=== PATIENT | male | born 1945 | race Caucasian/White ===

== ENCOUNTER → 2018-02-12 | Outpatient (CLI) | payer MEDICARE ==
[~2018-02-12] MED LIST: AMLO10 PO; ATOR40TA PO; ATOR80; AZIT250 PO; Aspir 8181 MG PO; BLOOD PRESSURE PILL; CHLO25B PO; Cipro500 MG PO; Flagyl250 MG PO; LEVFLO500 PO; LISI5; Lomotil Tablet1 EACH PO; METO25 PO; METO50; Norco 5-325 Ta1 EACH PO; POTCHL10ER PO; POTCHL20ER PO; VALSARTAN40 MG; Zofran Odt4 MG SL
== END | disposition home or self-care (01) ==
LOC: LAB SHORT 08:15 → PLD 08:15
DX: L57.0 Actinic keratosis (principal)
CPT/HCPCS: 88305

== ENCOUNTER 2020-04-04 05:15 | Emergency (ER) | payer MEDICARE ==
[~2020-04-04] VITALS: Ht 172.7 cm; Wt 95.2 kg
[2020-04-04 05:50] LABS: BASOPHILS ABSOLUTE AUTO 0.06 K/mm3 (0.00-0.23); BASOPHILS PERCENT AUTO 0 % (0-2); EOSINOPHILS ABSOLUTE AUTO 0.25 K/mm3 (0.00-0.68); EOSINOPHILS PERCENT AUTO 2 % (0-6); Hemoglobin 15.3 g/dL (13.5-17.5); IMMATURE GRAN ABSOLUTE AUTO 0.07 K/mm3 (0.00-0.10); IMMATURE GRAN PERCENT AUTO 1 % (0-1); LYMPHOCYTES ABSOLUTE AUTO 1.14 K/mm3 (0.84-5.20); LYMPHOCYTES PERCENT AUTO 8 % (21-46); MONOCYTES ABSOLUTE AUTO 0.95 K/mm3 (0.16-1.47); MONOCYTES PERCENT AUTO 7 % (4-13); Mean Corpuscular HGB 29.2 pg (26.0-34.0); Mean Corpuscular HGB Conc 33.3 g/dL (31.5-36.5); Mean Corpuscular Volume 88 fL (80-100); NEUTROPHILS ABSOLUTE AUTO 11.69 K/mm3 (1.96-9.15); NEUTROPHILS PERCENT AUTO 83 % (41-73); Platelet Count 215 K/mm3 (150-400); RDW Coefficient Variation 13.2 % (11.7-14.2); RDW Standard Deviation 42.7 fL (35.1-46.3); Red Blood Cell Count 5.24 M/mm3 (4.30-5.90); White Blood Cell Count 14.16 K/mm3 (4.00-11.30)
[2020-04-04 06:07] LABS: Albumin, Blood 3.6 g/dL (3.4-5.0); Albumin/Globulin Ratio 1.2 (0.8-1.8); Bilirubin, Total 0.7 mg/dL (0.1-1.0); Calcium, Blood 8.8 mg/dL (8.5-10.1); Creatinine, Blood 1.36 mg/dL (0.60-1.20); Globulin, Blood 3.1 g/dL (2.2-4.0); Potassium, Blood 3.3 mmol/L (3.5-5.5); Total Protein, Blood 6.7 g/dL (6.4-8.2)
[2020-04-04] MEDS ORDERED: HYDR1TAB94 PO (07:00)
[2020-04-04 07:51] LABS: Source, Urine Clean Catch
[2020-04-04 07:58] LABS: Appearance, Urine Cloudy (Clear); Bilirubin, Urine Neg (Neg); Blood, Urine 5+ (Neg); Color, Urine Brown (P-Yellow); Glucose Qualitative, Urine Neg (Neg); Ketones, Urine 1+ (Neg); Leukocyte Esterase, Urine 1+ (Neg); Nitrite, Urine Neg (Neg); Protein, Urine 2+ (Neg); Specific Gravity, Urine 1.015 (1.003-1.022); Urobilinogen, Urine NORM (Normal); pH, Urine 6.5 (5.0-8.0)
[2020-04-04 08:08] LABS: Red Blood Cells, Urine TNTC /hpf (0-2)
[2020-04-04 08:09] LABS: Bacteria Mod /hpf; Squamous Epithelial Cells Rare /hpf (Few)
[2020-04-07] MEDS ORDERED: METOPROLOL TART25 MG PO (22:57)
[2020-04-07] MEDS ORDERED: LOSA50 PO (22:58)
== END 2020-04-04 08:20 | disposition home or self-care (01) ==
LOC: ER 05:15
PROVIDERS: Emergency Medicine
DX: N13.2 Hydronephrosis with renal and ureteral calculous obstruction (principal); Z79.82 Long term (current) use of aspirin; Z79.899 Other long term (current) drug therapy; Z79.2 Long term (current) use of antibiotics; I10 Essential (primary) hypertension; I25.2 Old myocardial infarction; E78.5 Hyperlipidemia, unspecified; Z87.891 Personal history of nicotine dependence
CPT/HCPCS: 36415; 74176; 80053; 81001; 83690; 85025; 87086; 93005; 93010; 99284-25

== ENCOUNTER 2023-01-22 12:24 | Day surgery (SDC) | payer MEDICARE ==
[~2023-01-22] VITALS: Ht 172.7 cm; Wt 78.0 kg
[~2023-01-22 12:24] MED LIST changes: +HYDR1TAB94 PO; +LOSA50 PO; +METOPROLOL TART25 MG PO
[2023-01-22] MEDS ORDERED: OLME20 PO (12:55)
--- NOTE | 2023-01-22 13:05 | NUR ---
01/22/23 1305 Tata Dao CALL LIGHT WITHIN REACH. TETRACAINE IN AT 1300 IN THE LEFT EYE AND PLEDGETT IN AT 1303
[2023-01-22 14:03] VITALS: BP 161/68
--- NOTE | 2023-01-22 14:04 | NUR ---
01/22/23 1404 Keyshawn De Paz IV REMOVED. SITE WNL. PT INSTRUCTED TO MONITOR B/P AT HOME AND FOLLOW UP WITH PCP.
== END 2023-01-22 14:18 | disposition home or self-care (01) ==
LOC: ORSCSDS 12:24
PROVIDERS: Ophthalmology
PROC: 08DK3ZZ Extraction of Left Lens, Percutaneous Approach (ICD-10-PCS; principal; 2023-01-22 13:30)
DX: H25.12 Age-related nuclear cataract, left eye (principal); I25.2 Old myocardial infarction; I10 Essential (primary) hypertension; Z79.899 Other long term (current) drug therapy
CPT/HCPCS: J2250; J3010; J3301; J7040; V2632

== ENCOUNTER 2023-01-29 12:08 | Day surgery (SDC) | payer MEDICARE ==
[~2023-01-29] VITALS: Ht 172.7 cm; Wt 78.4 kg
[~2023-01-29 12:08] MED LIST changes: +OLME20 PO
--- NOTE | 2023-01-29 12:49 | NUR ---
01/29/23 1249 Sharda Gonzalez 1230, LENORA 1231
--- NOTE | 2023-01-29 13:59 | NUR ---
01/29/23 1359 Delilah Adames PREP BY [email or web address]
[2023-01-29 14:19] VITALS: BP 160/69
== END 2023-01-29 14:37 | disposition home or self-care (01) ==
LOC: ORSCSDS 12:08
PROVIDERS: Ophthalmology
PROC: 08DJ3ZZ Extraction of Right Lens, Percutaneous Approach (ICD-10-PCS; principal; 2023-01-29 13:30)
DX: H25.11 Age-related nuclear cataract, right eye (principal); I10 Essential (primary) hypertension; Z96.1 Presence of intraocular lens; I25.2 Old myocardial infarction; Z87.891 Personal history of nicotine dependence; Z79.82 Long term (current) use of aspirin; Z79.899 Other long term (current) drug therapy
CPT/HCPCS: J2001; J2250; J3010; J3301; J7040; V2632